=== PATIENT | male | born 1930 | race Asian ===

== ENCOUNTER 2018-03-22 21:43 | Inpatient (IN) | payer MEDICARE, OTHER ==
[~2018-03-22] VITALS: Ht 165.1 cm; Wt 68.0 kg
[2018-03-22 21:45] VITALS: BP 115/85
[2018-03-23] VITALS (8 sets, daily range): BP systolic 111–167; BP diastolic 61–100
[2018-03-23 00:02] LABS: HEMATOCRIT 45.1 % (42.0-52.0); HEMOGLOBIN 15.8 G/DL (14.2-18.0); MEAN CORPUSCULAR VOLUME 91 FL (80-99); PLATELET COUNT 181 K/UL (150-450); RED BLOOD COUNT 4.98 M/UL (4.70-6.10); RED CELL DISTRIBUTION WIDTH 12.3 % (11.6-14.8); WHITE BLOOD COUNT 10.6 K/UL (4.8-10.8)
[2018-03-23 00:13] LABS: APPEARANCE,URINE CLEAR; BILIRUBIN, URINE NEGATIVE (NEGATIVE); COLOR,URINE YELLOW; GLUCOSE, URINE (UA) NEGATIVE (NEGATIVE); KETONES,URINE 1+ (NEGATIVE); LEUKOCYTE ESTERASE ,URINE 1+ (NEGATIVE); NITRITE,URINE NEGATIVE (NEGATIVE); PH,URINE 6 (4.5-8.0); PROTEIN,URINE 2+ (NEGATIVE); UROBILINOGEN,URINE NORMAL MG/DL (0.0-1.0)
[2018-03-23 00:28] LABS: ALANINE AMINOTRANSFERASE 29 U/L (12-78); ALBUMIN 3.1 G/DL (3.4-5.0); ALBUMIN/GLOBULIN RATIO 0.8 (1.0-2.7); ALKALINE PHOSPHATASE 48 U/L (46-116); ANION GAP 6 mmol/L (5-15); ASPARTATE AMINO TRANSFERASE 71 U/L (15-37); BILIRUBIN,TOTAL 0.8 MG/DL (0.2-1.0); BLOOD UREA NITROGEN 23 mg/dL (7-18); CALCIUM 7.6 MG/DL (8.5-10.1); CARBON DIOXIDE 24 MMOL/L (21-32); CHLORIDE 106 MMOL/L (98-107); CKMB 1.6 NG/ML (0.0-3.6); CREATINE KINASE 284 U/L (26-308); CREATININE 1.1 MG/DL (0.55-1.30); SODIUM 136 MMOL/L (136-145)
[2018-03-23 00:33] LABS: POTASSIUM 6.6 MMOL/L (3.5-5.1)
[2018-03-23] MEDS ORDERED: Aspirin Baby 81mg ORAL ONE (00:45)
[2018-03-23] MEDS ORDERED: Enoxaparin 80mg Inj SUBQ ONE (00:45)
[2018-03-23] MEDS ORDERED: Enoxaparin 30mg Inj SUBQ ONE (01:41)
[2018-03-23] MEDS ORDERED: Enoxaparin 100mg Inj SUBQ ONE (01:42)
--- NOTE | 2018-03-23 01:57 | Emergency Room Report ---
History of Present Illness General Chief Complaint: Altered Level of Consciousness Source: Patient, Medical Record, EMS Present Illness HPI This is an 87-year-old Mohawk speaking male with a history of high blood pressure. He was brought in by EMS with chief complaint of dizziness. He was sitting on the sidewalk. He said he felt dizzy. Denies any chest pain. History is through her Mohawk speaking salt lifter. Patient is very poor historian. It appeared that he has dementia. He was well dressed. There was no evidence of any trauma. Patient said when he stood up he felt dizzy like his did not pass out. No other complaint. I was able to access his chart from [facility] online. He was there in 2014 for head injury. I called [facility] and able to get a Social Security number for him. From the Social Security number, registration was able to find an address for him. We called the police and that district and there was a missing person report. His son was contacted and is coming. Allergies: Coded Allergies: UNABLE TO ASSESS (Unverified , 03/22/18) Patient History Past Medical History: see triage record, old chart reviewed Past Surgical History: other Pertinent Family History: none Social History: Denies: smoking Immunizations: other Reviewed Nursing Documentation: PMH: Agreed; PSxH: Agreed Review of Systems Eye: Denies: eye pain, blurred vision ENT: Denies: ear pain, nose congestion, throat swelling Respiratory: Denies: cough, shortness of breath Cardiovascular: Denies: chest pain, palpitations Gastrointestinal: Denies: abdominal pain, diarrhea, nausea, vomiting Musculoskeletal: Denies: back pain, joint pain Skin: Denies: rash Neurological: Denies: headache, numbness Endocrine: Denies: increased thirst, increased urine Hematologic/Lymphatic: Denies: easy bruising All Other Systems: negative except mentioned in HPI Physical Exam Vital Signs Date Time Temp Pulse Resp B/P (MAP) Pulse Ox O2 Delivery O2 Flow Rate FiO2 03/22/18 21:37 98.3 104 18 115/85 98 Room Air 98.2 vitals normal Sp02 EP Interpretation: reviewed, normal General Appearance: well appearing, no apparent distress, alert Head: normocephalic, atraumatic Eyes: bilateral eye PERRL, bilateral eye EOMI ENT: hearing grossly normal, normal pharynx Neck: full range of motion, supple, no meningismus Respiratory: chest non-tender, lungs clear, normal breath sounds Cardiovascular #1: regular rate, rhythm, no murmur Gastrointestinal: normal bowel sounds, non tender, no mass, no organomegaly, no bruit, non-distended Musculoskeletal: back normal, gait/station normal, normal range of motion Psychiatric: mood/affect normal Skin: warm/dry Medical Decision Making Diagnostic Impression: Primary Impression: Dementia Qualified Codes: G30.1 - Alzheimer's disease with late onset; F02.80 - Dementia in other diseases classified elsewhere without behavioral disturbance Additional Impressions: Proteinuria Qualified Codes: R80.9 - Proteinuria, unspecified Dizziness of unknown cause ER Course Patient presents with altered mental status and dizziness. His troponin is intermediate here. He received aspirin and Lovenox here. He has no chest pain complaint. No evidence of ST elevation on his EKG. Will admit for further workup. I contacted Dr. Baires for admission. EKG Diagnostic Results Rate: normal Rhythm: NSR ST Segments: no acute changes ASA given to the pt in ED: Yes Rhythm Strip Diag. Results Rhythm Strip Time: 01:55 EP Interpretation: yes Rate: 80 Rhythm: NSR, no PVC's, no ectopy Chest X-Ray Diagnostic Results Chest X-Ray Diagnostic Results : Chest X-Ray Ordered: Yes # of Views/Limited/Complete: 1 View Indication: Shortness of Breath EP Interpretation: Yes Interpretation: no consolidation, no effusion, no pneumothorax, no acute cardiopulmonary disease Impression: No acute disease CT/MRI/US Diagnostic Results CT/MRI/US Diagnostic Results : Imaging Test Ordered: CT head Impression negative per radiologist Last Vital Signs Date Time Temp Pulse Resp B/P (MAP) Pulse Ox O2 Delivery O2 Flow Rate FiO2 03/22/18 21:45 98.2 18 115/85 98 Room Air 98.2 03/22/18 21:37 104 Status: improved Disposition: ADMITTED INPATIENT Condition: Serious Referrals: NOT CHOSEN BUSHRA/,REFERRING (PCP) CLAY ALMANZAR M.D. Mar 23, 2018 01:57
[2018-03-23] MEDS ORDERED: LORazepam Inj 2mg/ml 1ml IV ONE (02:15)
[2018-03-23] MEDS ORDERED: LORazepam 1mg tab ORAL PRN (04:15)
[2018-03-23] MEDS ORDERED: Milk of Magnesia 30ml Ud ORAL PRN (04:15)
[2018-03-23] MEDS ORDERED: Zolpidem 5mg tab ORAL PRN (04:15)
[2018-03-23] MEDS ORDERED: Aspirin Baby 81mg ORAL SCH (09:00)
--- NOTE | 2018-03-23 10:13 | Diagnostic Imaging Report ---
Indication: Altered mental status Technique: Contiguous 5 mm thick transaxial imaging of the head obtained in a Siemens Sensation [address] scanner. Soft tissue and bone windows generated. Automatic Exposure Control was utilized. Total Dose length Product (DLP): 1393.[address] Dose Index Volume (CTDIvol): 70.38 mGy Comparison: none Findings: There is moderate prominence of the ventricles, basal cisterns, and cerebral sulci consistent with atrophy. Moderate, nonspecific, white matter hypoattenuation is noted throughout the brain consistent with chronic small vessel disease. There is no midline shift, edema, acute hemorrhage, mass effect, or abnormal extra-axial fluid collections. Bones and extra osseous soft tissues are unremarkable. Impression: No acute intracranial bleed, mass effect or edema. Moderate atrophy of the brain. Evidence of chronic small vessel disease involving white matter tracts. [facility] has communicated the preliminary results to the Emergency Department. Their findings are largely concordant with this report. The CT scanner at [facility] is accredited by the [employer] and the scans are performed using dose optimization techniques as appropriate to a performed exam including Automatic Exposure control.
--- NOTE | 2018-03-23 10:56 | Diagnostic Imaging Report ---
Indication: Dyspnea Comparison: None A single view chest radiograph was obtained. Findings: Cardiomediastinal appearance is within normal limits for age. Pulmonary vascularity is appropriate. The diaphragmatic contour is smooth and costophrenic angles are sharp. No pleural effusions are identified. The bones are osteopenic. Impression: No acute findings
[2018-03-23] MEDS ORDERED: Memantine 5 MG TAB ORAL SCH (11:30)
[2018-03-23] MEDS: Aspirin Baby 81mg ORAL SCH (12:18)
--- NOTE | 2018-03-23 17:05 | Cardiology Report ---
APPROVED REPORT EKG Measurement Heart [id number] MS [id number] [id number] Normal sinus rhythm Cannot rule out Anterior infarct, age undetermined Abnormal ECG
[2018-03-23] MEDS: Donepezil 5mg Tab ORAL SCH ×2 (21:00→22:47)
--- NOTE | 2018-03-24 07:15 | History and Physical Report ---
DATE OF ADMISSION: 03/23/2018 NOTE: POOR AUDIO CHIEF COMPLAINT: The patient was found on the sidewalk complaining of dizziness. HISTORY OF PRESENT ILLNESS: This is an 87-year-old Kazakh male apparently with history of Alzheimer's dementia, just talked to the daughter. According to the daughter, the patient wandered out of the house yesterday and they could not find him. They made a police report. Meanwhile, the patient was found on the sidewalk sitting and complaining of dizziness and was brought in by paramedics. He had a slightly elevated troponin and was admitted to telemetry. There is no report of any syncope. PAST MEDICAL HISTORY: History of hypertension. Apparently, the patient has history of Alzheimer's and according to daughter, this is the fourth time he is wandering out of the house and not to be found. He had also, a few years ago, a head injury causing intracranial bleed needing evacuation. ALLERGIES: No known drug allergies. SOCIAL HISTORY: No history of smoking or alcohol abuse. The patient lives at home with . REVIEW OF SYSTEMS: Unobtainable. PHYSICAL EXAMINATION: GENERAL: The patient is lethargic at this point. The patient did get some Ativan in the emergency room. VITAL SIGNS: Blood pressure is 139/61 with pulse 67, temperature 97.5, and respiratory rate 18. HEENT: Minor conjunctivae. Anicteric sclerae. NECK: Supple. LUNGS: Clear to auscultation. HEART: S1 and S2 without murmurs or rubs. ABDOMEN: Soft and nontender. EXTREMITIES: No cyanosis or edema. LABORATORY FINDINGS: The CBC shows WBC of 10.6, hematocrit is 45.1, hemoglobin is 15.8, and platelets 181,000. Chemistry panel shows sodium 136, potassium was 6.6, however, repeat was 3.8, this was likely hemolyzed, chloride 106, CO2 of 24, BUN is 23, creatinine 1.1, glucose is 117, and calcium is 7.6. Troponin was 0.112. The UA shows 10 to 15 rbc's per high-power field and 2+ protein. ASSESSMENT: This is an 87-year-old Kazakh male with history of Alzheimer's dementia, who was found on the sidewalk complaining of dizziness. He was brought in to the emergency room. He has slightly elevated troponin possibly with acute coronary syndrome, however, likely that the patient does not have any acute myocardial infarction. He has history of hypertension, however, his blood pressure is controlled at this point. PLAN: The patient will be hydrated with intravenous fluids. Troponins will be repeated again. Echocardiogram will be done to assess LV function. Cardiology consultation will be obtained. Case was discussed with the daughter and the plan is a board and care facility after discharge since the patient is not safe to stay home. Jack Baires M.D. DR: BRENNAN JOB#: [id number] CC: CASSIA
[2018-03-24 08:00] VITALS: BP 142/80
[2018-03-24] MEDS: Aspirin Baby 81mg ORAL SCH (08:53)
[2018-03-24] MEDS ORDERED: Memantine 5 MG TAB ORAL SCH (09:00)
--- NOTE | 2018-03-24 09:28 | General Progress Note ---
Assessment/Plan Problem List: (1) Dizziness of unknown cause ICD Codes: R42 - Dizziness and giddiness SNOMED: 756598395 (2) Dementia ICD Codes: F03.90 - Unspecified dementia without behavioral disturbance SNOMED: 38678801, 45052132 Qualifiers: Qualified Codes: G30.1 - Alzheimer's disease with late onset; F02.80 - Dementia in other diseases classified elsewhere without behavioral disturbance (3) Elevated troponin ICD Codes: R74.8 - Abnormal levels of other serum enzymes SNOMED: 473808606, 132517969, 731366047 Assessment/Plan cardiology consult Tranfer to med surg Needs board and care Subjective Allergies: Coded Allergies: UNABLE TO ASSESS (Unverified , 03/22/18) Subjective confused Objective Last 24 Hour Vital Signs Date Time Temp Pulse Resp B/P (MAP) Pulse Ox O2 Delivery O2 Flow Rate FiO2 03/24/18 08:53 80 142/80 03/24/18 08:00 98.1 80 20 142/80 97 98.1 03/23/18 20:00 97.9 99 20 138/81 95 97.9 03/23/18 17:40 79 174/103 03/23/18 17:39 174/103 03/23/18 16:00 90 03/23/18 16:00 97.5 69 18 167/100 95 Room Air 97.5 83 03/23/18 12:00 69 03/23/18 12:00 97.5 69 18 153/91 95 Room Air 97.5 83 Intake and Output 03/23/18 03/24/18 19:00 07:00 Intake Total 1340 ml Balance 1340 ml Intake Oral 840 ml IV Total 500 ml # Voids 6 Laboratory Tests 03/23/18 11:10: Troponin I 0.154H 03/23/18 20:20: Troponin I 0.112H Height (Feet): 5 Height (Inches): 5.00 Weight (Pounds): 150 Cardiovascular: normal rate Respiratory/Chest: lungs clear Edema: no edema noted DARRIN Wyman Mar 24, 2018 09:28
[2018-03-24 12:00] VITALS: BP 163/81
--- NOTE | 2018-03-24 15:18 | General Progress Note ---
Assessment/Plan Status: stable Assessment/Plan seroquel standing and prn dc the sitter Subjective Date patient seen: Mar 24, 2018 Neurologic/Psychiatric: Reports: anxiety, depressed, emotional problems Allergies: Coded Allergies: UNABLE TO ASSESS (Unverified , 03/22/18) Objective Last 24 Hour Vital Signs Date Time Temp Pulse Resp B/P (MAP) Pulse Ox O2 Delivery O2 Flow Rate FiO2 03/24/18 12:00 97.0 91 20 163/81 98 97.0 03/24/18 08:53 80 142/80 03/24/18 08:00 98.1 80 20 142/80 97 98.1 03/23/18 20:00 97.9 99 20 138/81 95 97.9 03/23/18 17:40 79 174/103 03/23/18 17:39 174/103 03/23/18 16:00 90 03/23/18 16:00 97.5 69 18 167/100 95 Room Air 97.5 83 Intake and Output 03/23/18 03/24/18 19:00 07:00 Intake Total 1340 ml Balance 1340 ml Intake Oral 840 ml IV Total 500 ml # Voids 6 Laboratory Tests 03/23/18 20:20: Troponin I 0.112H Height (Feet): 5 Height (Inches): 5.00 Weight (Pounds): 150 General Appearance: no apparent distress, alert, confused, agitated Neurologic: alert, disoriented, depressed affect Harvey Germain M.D. Mar 24, 2018 15:18
[2018-03-24 16:00] VITALS: BP 148/86
[2018-03-24 17:05] LABS: CHOLESTEROL 176 MG/DL (< 200); HDL CHOLESTEROL 53 MG/DL (40-60); TRIGLYCERIDES 70 MG/DL (30-150)
--- NOTE | 2018-03-24 17:15 | Consultation ---
DATE OF CONSULTATION: 03/23/2018 This is a late entry. HISTORY OF PRESENT ILLNESS: The patient is an 87-year-old Kiswahili male with a history of Alzheimer dementia, who has been admitted to the hospital for dizziness. The patient has been agitated and attempting to come out of bed. During observation, he was very agitated. He had a sitter and not redirectable. During the evaluation, he is unable to provide any meaningful history and is easily agitated. PAST PSYCHIATRIC HISTORY: He has a history of Alzheimer dementia. He has a history of dementia and agitation. ALLERGIES: No known drug allergies. PAST MEDICAL HISTORY: Significant for hypertension and cognitive impairment. MENTAL STATUS EXAMINATION: The patient is alert and oriented times self, confused, and disoriented. Mood is agitated. Affect is constricted. Congruent with mood. Thought process is concrete. Thought content, no suicidal or homicidal ideations. ASSESSMENT: [place] I Encephalopathy. Dementia with behavioral disturbance. [place] II Deferred. [place] III As above. [place] IV Low. [place] V Global assessment of functioning is 20. PLAN: 1. The patient will be started on Seroquel 25 mg every 6 hours p.r.n. 2. Seroquel at 25 mg at bedtime with the head 30-degree. Continue the sitter. Harvey Germain M.D. DR: RAKESH JOB#: [id number] CC:
[2018-03-24] MEDS: LORazepam Inj 2mg/ml 1ml IM PRN (17:55)
--- NOTE | 2018-03-24 19:00 | Cardiology Progress Note ---
Assessment/Plan Assessment/Plan pt poor candidate for anything other than conservative therpay with asa bb statin not been able to contact family alexander have echo repat ekg and trop in am [id number] Objective Last 24 Hour Vital Signs Date Time Temp Pulse Resp B/P (MAP) Pulse Ox O2 Delivery O2 Flow Rate FiO2 03/24/18 16:00 97.3 98 20 148/86 95 Room Air 97.3 03/24/18 12:00 97.0 91 20 163/81 98 97.0 03/24/18 08:53 80 142/80 03/24/18 08:00 98.1 80 20 142/80 97 98.1 03/23/18 20:00 97.9 99 20 138/81 95 97.9 Intake and Output 03/23/18 03/24/18 19:00 07:00 Intake Total 1340 ml Balance 1340 ml Intake Oral 840 ml IV Total 500 ml # Voids 6 Laboratory Tests Test 03/23/18 20:20 03/24/18 16:05 Troponin I 0.112 ng/mL (0.000-0.056) 0.060 ng/mL (0.000-0.056) Hemoglobin A1c 5.9 % (4.3-6.0) Triglycerides Level 70 MG/DL (30-150) Cholesterol Level 176 MG/DL (< 200) LDL Cholesterol 117 mg/dL (<100) H HDL Cholesterol 53 MG/DL (40-60) Cholesterol/HDL Ratio 3.3 (3.3-4.4) Thyroid Stimulating Hormone (TSH) 2.812 uiU/mL (0.358-3.740) ESTER TODD Mar 24, 2018 19:00
[2018-03-24 20:00] VITALS: BP 141/82
[2018-03-24] MEDS: Metoprolol Tartrate 12.5mg TAB ORAL SCH ×2 (20:56→21:00)
--- NOTE | 2018-03-24 23:00 | Consultation ---
DATE OF CONSULTATION: 03/24/2018 CARDIOLOGY CONSULTATION CONSULTING PHYSICIAN: Kraig Sanchez M.D. REFERRING PHYSICIAN: Jack Baires M.D. REASON FOR REFERRAL: Abnormal cardiac enzymes. HISTORY OF PRESENT ILLNESS: This is an 87-year-old Green[place]ic gentleman with apparently advanced dementia. The patient is being seen because of abnormal cardiac enzymes. I tried to contact the patient's daughter for more information. Unfortunately I have not been able to get in touch with her; therefore, information was obtained from the review of the chart. It appears the patient was found sitting on the sidewalk by bystander and when approached he said he felt dizzy and bystanders then called 911. The patient was able to state his name, but communication was very limited, Green[place]ic speaking, very little [place]. Eventually the patient was brought to the emergency room and was admitted to the hospital and was noted to have some abnormal cardiac enzymes. This consultation requested by Dr. Baires. It appears that the patient has a family history of Alzheimer's dementia. He wandered out of the house yesterday and they could not find him. They made a police report and obviously the rest is as mentioned above. The patient has slightly elevated troponin at the time of his admission and he was admitted to the hospital. PAST MEDICAL HISTORY: According to the chart positive for high blood pressure, Alzheimer's dementia, and he has had wandering episodes previously, and he also had a few years ago head injury causing intracranial bleeding needing evacuation apparently. ALLERGIES: Not allergic to any medications. SOCIAL HISTORY: He does not smoke or drink alcoholic beverages. He lives at home with his . REVIEW OF SYSTEMS: Unable to obtain. PHYSICAL EXAMINATION: GENERAL: Shows to be elderly gentleman, in no respiratory distress, quite confused and gibberish talking and otherwise not able to provide any meaningful. LUNGS: Appear to be clear to auscultation and percussion. CARDIAC: Regular rate and rhythm. No heaves or thrills noted. ABDOMEN: Soft and nontender. Positive bowel sounds. EXTREMITIES: There is no edema. No clubbing or cyanosis. LABORATORY AND DIAGNOSTIC DATA: A chest x-ray that showed no acute findings. A CT scan of the head was performed that showed no evidence of acute intracranial bleed, mass effect, or edema, moderate atrophy of the brain and evidence of chronic small vessel disease involving the white matter tracts apparently. Blood tests, white count 10.6, hemoglobin 15.8, and platelet count 181. His sodium is 136, potassium 6.6, chloride 106, bicarbonate 24, BUN of 22, creatinine 1.1 and glucose of 117. His first set of cardiac enzymes 0.112 and CK of 284. Subsequent troponin 0.154, 0.112, and 0.060. Total cholesterol 172, LDL of 117 and HDL of 53. TSH of 2.812. His potassium was repeated at 3.8. His urinalysis shows 10 to 15 rbc's and 2 to 4 wbc's. He has had an electrocardiogram that was performed, which showed normal QRS axis, some nonspecific T-wave changes, otherwise, no other significant abnormalities. There is poor R-wave progression, which may be others. The telemetry appears to show sinus when he arouse but he has been refusing to allow telemetry according the nursing staff. He has had a sitter at his bedside. ASSESSMENT AND PLAN: 1. Abnormal cardiac enzymes. 2. Advanced dementia. 3. Wandering. 4. History of intracranial bleed. Dr. Baires, this patient was seen in cardiac consultation. The patient has no capacity to communicate. I have not been able to get a hold of the patient's family members. The etiology of the cardiac enzymes not completely understood as of yet, however, the patient is a very poor candidate for any further workup. An echocardiogram will be ordered and repeat EKG and cardiac enzymes will be ordered for tomorrow morning and my hope is to be able to get some more information from the patient's family members and do notify them that he is not a candidate for any further therapy and to treat conservatively, may add some beta-blockers to the patient's regimen as well as some aspirin and some statins for conservative treatment of possible underlying coronary disease. I will provide more information once I am able to communicate with the patient's family members and/or if the results of the above tests are available. Kraig Snachez M.D. DR: JACQUES JOB#: [id number] CC:
[2018-03-25] VITALS (8 sets, daily range): BP systolic 119–172; BP diastolic 68–109
[2018-03-25] MEDS: Metoprolol Tartrate 12.5mg TAB ORAL SCH ×2 (09:00→21:00)
[2018-03-25] MEDS: Aspirin Baby 81mg ORAL SCH (09:00)
[2018-03-25] MEDS: LORazepam Inj 2mg/ml 1ml IM PRN ×2 (09:34→16:27)
--- NOTE | 2018-03-25 13:21 | Cardiology Progress Note ---
Assessment/Plan Assessment/Plan 1. Abnormal cardiac enzymes. 2. Advanced dementia. 3. Wandering. 4. History of intracranial bleed. trop level do not reach WHO. criterea for ami per manufact recommendation pt poor candidate for anything other than conservative therapy on asa bb statin trop improved ekg nto doen pt did not allow had echo i reviwewecd overall function seems fine d/w pt dtr my recommnedation for meds as noted above she indicated understanding and agree with conservative treatment d/c tele dc plan per dr izquierdo d/w rn Subjective ROS Limited/Unobtainable: Yes Objective Last 24 Hour Vital Signs Date Time Temp Pulse Resp B/P (MAP) Pulse Ox O2 Delivery O2 Flow Rate FiO2 03/25/18 09:00 81 157/89 03/25/18 09:00 81 157/89 03/25/18 08:00 97.9 81 18 157/89 95 Room Air 97.9 03/25/18 04:00 97.9 81 20 133/68 97 Room Air 97.9 03/25/18 04:00 81 03/25/18 00:00 80 03/25/18 00:00 97.3 80 18 130/74 96 Room Air 97.3 03/24/18 21:00 81 141/82 03/24/18 20:00 98.0 89 20 141/82 97 Room Air 98.0 03/24/18 16:00 97.3 98 20 148/86 95 Room Air 97.3 General Appearance: other - comfused some , at time agitated Neck: supple Cardiovascular: normal rate Respiratory/Chest: lungs clear Abdomen: normal bowel sounds, non tender, soft Extremities: no swelling Intake and Output 03/24/18 03/25/18 19:00 07:00 Intake Total 640 ml 452 ml Balance 640 ml 452 ml Intake Oral 640 ml IV Total 452 ml # Voids 13 2 Laboratory Tests Test 03/24/18 16:05 03/25/18 07:45 Hemoglobin A1c 5.9 % (4.3-6.0) Troponin I 0.060 ng/mL (0.000-0.056) 0.039 ng/mL (0.000-0.056) Triglycerides Level 70 MG/DL (30-150) Cholesterol Level 176 MG/DL (< 200) LDL Cholesterol 117 mg/dL (<100) H HDL Cholesterol 53 MG/DL (40-60) Cholesterol/HDL Ratio 3.3 (3.3-4.4) Thyroid Stimulating Hormone (TSH) 2.812 uiU/mL (0.358-3.740) ESTER TODD March 25, 2018 13:21
--- NOTE | 2018-03-25 16:38 | Cardiology Report ---
APPROVED REPORT EXAM: Two-dimensional and M-mode echocardiogram with Doppler and color Doppler. INDICATION CAD M-Mode DIMENSIONS IVSd1.3 (0.7-1.1cm)Left Atrium (MM)3.2 (1.6-4.0cm) LVDd3.9 (3.5-5.6cm)Aortic Root3.3 (2.0-3.7cm) PWd1.3 (0.7-1.1cm)Aortic Cusp Exc.2.0 (1.5-2.0cm) IVSs1.7 cm LVDs2.7 (2.5-4.0cm) PWs1.6 cm Technically difficult study due to pts resistance . Normal left ventricular chamber size, systolic function and wall motion to extent visualized Left ventricular ejection fraction estimated to be 60-65%. No evidence of left ventricular hypertrophy . No evidence of pericardial effusion. All other cardiac chamber sizes are within normal limits. Focal aortic valve sclerosis with adequate cusp excursion. Mildly Thickened mitral valve leaflets with normal excursion. Mildly Mitral annulus and aortic root calcification. Normal pulmonic valve structure. Normal tricuspid valve structure. IVC dilated at 2.2cm without physiologic collapse suggestive of increased RA pressure. A color flow and spectral Doppler study was performed and revealed: Mild aortic regurgitation. Trace mitral regurgitation. Normal left ventricular diastolic function . Trace tricuspid regurgitation. Tricuspid systolic velocities suggests peak right ventricular systolic pressure of 19mmHg.
--- NOTE | 2018-03-25 16:55 | General Progress Note ---
Assessment/Plan Problem List: (1) Dizziness of unknown cause ICD Codes: R42 - Dizziness and giddiness SNOMED: 520831416 (2) Dementia ICD Codes: F03.90 - Unspecified dementia without behavioral disturbance SNOMED: 21081429, 93870317 Qualifiers: Qualified Codes: G30.1 - Alzheimer's disease with late onset; F02.80 - Dementia in other diseases classified elsewhere without behavioral disturbance (3) Elevated troponin ICD Codes: R74.8 - Abnormal levels of other serum enzymes SNOMED: 850710983, 584661100, 067444789 Assessment/Plan psych F/U PRN sedation Discussed with RN and case management social worker Needs placement Subjective Allergies: Coded Allergies: UNABLE TO ASSESS (Unverified , 03/22/18) Subjective pt was agitated today sedated now Objective Last 24 Hour Vital Signs Date Time Temp Pulse Resp B/P (MAP) Pulse Ox O2 Delivery O2 Flow Rate FiO2 03/25/18 15:52 172/109 03/25/18 15:51 98.4 86 20 172/109 95 98.4 03/25/18 13:22 150/92 03/25/18 12:00 97.1 81 18 168/100 95 Room Air 97.1 03/25/18 09:00 81 157/89 03/25/18 09:00 81 157/89 03/25/18 08:00 97.9 81 18 157/89 95 Room Air 97.9 03/25/18 04:00 97.9 81 20 133/68 97 Room Air 97.9 03/25/18 04:00 81 03/25/18 00:00 80 03/25/18 00:00 97.3 80 18 130/74 96 Room Air 97.3 03/24/18 21:00 81 141/82 03/24/18 20:00 98.0 89 20 141/82 97 Room Air 98.0 Intake and Output 03/24/18 03/25/18 19:00 07:00 Intake Total 640 ml 452 ml Balance 640 ml 452 ml Intake Oral 640 ml IV Total 452 ml # Voids 13 2 Laboratory Tests 03/25/18 07:45: Troponin I 0.039 Height (Feet): 5 Height (Inches): 5.00 Weight (Pounds): 150 Cardiovascular: normal rate Respiratory/Chest: lungs clear Edema: no edema noted Generalized RAHBAN,DARRIN March 25, 2018 16:55
[2018-03-25 19:10] LABS: BASOPHILS % (AUTO) 0.9 % (0.0-2.0); EOSINOPHILS % (AUTO) 2.5 % (0.0-3.0); HEMATOCRIT 48.9 % (42.0-52.0); HEMOGLOBIN 16.2 G/DL (14.2-18.0); LYMPHOCYTES % (AUTO) 10.9 % (20.0-45.0); MEAN CORPUSCULAR VOLUME 91 FL (80-99); MONOCYTES % (AUTO) 10.1 % (1.0-10.0); NEUTROPHILS % (AUTO) 75.7 % (45.0-75.0); PLATELET COUNT 186 K/UL (150-450); RED BLOOD COUNT 5.38 M/UL (4.70-6.10); RED CELL DISTRIBUTION WIDTH 12.3 % (11.6-14.8); WHITE BLOOD COUNT 8.1 K/UL (4.8-10.8)
[2018-03-25 19:23] LABS: ANION GAP 12 mmol/L (5-15); BLOOD UREA NITROGEN 19 mg/dL (7-18); CALCIUM 8.8 MG/DL (8.5-10.1); CARBON DIOXIDE 24 MMOL/L (21-32); CHLORIDE 104 MMOL/L (98-107); CREATININE 0.9 MG/DL (0.55-1.30); SODIUM 140 MMOL/L (136-145)
--- NOTE | 2018-03-25 22:41 | General Progress Note ---
Assessment/Plan Status: stable, progressing Assessment/Plan seroquel standing and prn dc the sitter Subjective Date patient seen: March 25, 2018 Neurologic/Psychiatric: Reports: anxiety, depressed, emotional problems Allergies: Coded Allergies: UNABLE TO ASSESS (Unverified , 03/22/18) Objective Last 24 Hour Vital Signs Date Time Temp Pulse Resp B/P (MAP) Pulse Ox O2 Delivery O2 Flow Rate FiO2 03/25/18 20:00 97.9 87 16 119/79 96 97.9 03/25/18 18:50 89 20 141/94 03/25/18 15:52 172/109 03/25/18 15:51 98.4 86 20 172/109 95 98.4 03/25/18 13:22 150/92 03/25/18 12:00 97.1 81 18 168/100 95 Room Air 97.1 03/25/18 09:00 81 157/89 03/25/18 09:00 81 157/89 03/25/18 08:00 97.9 81 18 157/89 95 Room Air 97.9 03/25/18 04:00 97.9 81 20 133/68 97 Room Air 97.9 03/25/18 04:00 81 03/25/18 00:00 80 03/25/18 00:00 97.3 80 18 130/74 96 Room Air 97.3 Intake and Output 03/24/18 03/25/18 19:00 07:00 Intake Total 640 ml 452 ml Balance 640 ml 452 ml Intake Oral 640 ml IV Total 452 ml # Voids 13 2 Laboratory Tests 03/25/18 07:45: Troponin I 0.039 03/25/18 18:30: White Blood Count 8.1, Red Blood Count 5.38, Hemoglobin 16.2, Hematocrit 48.9, Mean Corpuscular Volume 91, Mean Corpuscular Hemoglobin 30.1, Mean Corpuscular Hemoglobin Concent 33.1, Red Cell Distribution Width 12.3, Platelet Count 186, Mean Platelet Volume 7.3, Neutrophils (%) (Auto) 75.7H, Lymphocytes (%) (Auto) 10.9L, Monocytes (%) (Auto) 10.1H, Eosinophils (%) (Auto) 2.5, Basophils (%) ( Auto) 0.9, Sodium Level 140, Potassium Level 4.0, Chloride Level 104, Carbon Dioxide Level 24, Anion Gap 12, Blood Urea Nitrogen 19H, Creatinine 0.9, Estimat Glomerular Filtration Rate , Glucose Level 104, Calcium Level 8.8 Height (Feet): 5 Height (Inches): 5.00 Weight (Pounds): 150 General Appearance: WD/WN, no apparent distress, alert, confused Harvey Germain M.D. March 25, 2018 22:41
[2018-03-26 00:21] VITALS: BP 115/74
[2018-03-26 04:00] VITALS: BP 145/90
[2018-03-26] MEDS ORDERED: Milk of Magnesia 30ml Ud ORAL PRN (04:15)
[2018-03-26 08:00] VITALS: BP 150/97
[2018-03-26] MEDS: Metoprolol Tartrate 12.5mg TAB ORAL SCH ×2 (09:52→21:00)
[2018-03-26] MEDS: Aspirin Baby 81mg ORAL SCH (09:54)
[2018-03-26] MEDS ORDERED: Sodium Chloride 500ML 550 ML IV SCH (10:45)
--- NOTE | 2018-03-26 11:46 | General Progress Note ---
Assessment/Plan Problem List: (1) Dizziness of unknown cause ICD Codes: R42 - Dizziness and giddiness SNOMED: 956317418 (2) Dementia ICD Codes: F03.90 - Unspecified dementia without behavioral disturbance SNOMED: 78951494, 85194324 Qualifiers: Qualified Codes: G30.1 - Alzheimer's disease with late onset; F02.80 - Dementia in other diseases classified elsewhere without behavioral disturbance (3) Elevated troponin ICD Codes: R74.8 - Abnormal levels of other serum enzymes SNOMED: 561993557, 965862228, [id number] Assessment/Plan psych F/U PRN sedation Dc IV Needs placement Subjective Allergies: Coded Allergies: UNABLE TO ASSESS (Unverified , 03/22/18) Subjective calm today Objective Last 24 Hour Vital Signs Date Time Temp Pulse Resp B/P (MAP) Pulse Ox O2 Delivery O2 Flow Rate FiO2 03/26/18 09:53 96 154/94 03/26/18 09:52 96 154/94 03/26/18 08:00 97.0 82 18 150/97 97.0 03/26/18 04:00 98.3 90 17 145/90 95 98.3 03/26/18 00:21 98.0 81 16 115/74 96 98.0 03/25/18 20:00 97.9 87 16 119/79 96 97.9 03/25/18 20:00 Room Air 03/25/18 18:50 89 20 141/94 03/25/18 15:52 172/109 03/25/18 15:51 98.4 86 20 172/109 95 98.4 03/25/18 13:22 150/92 03/25/18 12:00 97.1 81 18 168/100 95 Room Air 97.1 Intake and Output 03/25/18 03/26/18 19:00 07:00 Intake Total 480 ml Balance 480 ml Intake Oral 480 ml # Voids 8 4 Laboratory Tests 03/25/18 18:30: White Blood Count 8.1, Red Blood Count 5.38, Hemoglobin 16.2, Hematocrit 48.9, Mean Corpuscular Volume 91, Mean Corpuscular Hemoglobin 30.1, Mean Corpuscular Hemoglobin Concent 33.1, Red Cell Distribution Width 12.3, Platelet Count 186, Mean Platelet Volume 7.3, Neutrophils (%) (Auto) 75.7H, Lymphocytes (%) (Auto) 10.9L, Monocytes (%) (Auto) 10.1H, Eosinophils (%) (Auto) 2.5, Basophils (%) ( Auto) 0.9, Sodium Level 140, Potassium Level 4.0, Chloride Level 104, Carbon Dioxide Level 24, Anion Gap 12, Blood Urea Nitrogen 19H, Creatinine 0.9, Estimat Glomerular Filtration Rate , Glucose Level 104, Calcium Level 8.8 Height (Feet): 5 Height (Inches): 5.00 Weight (Pounds): 150 Cardiovascular: normal rate Respiratory/Chest: lungs clear Edema: no edema noted Generalized DARRIN NOEL March 26, 2018 11:46
[2018-03-26 12:08] VITALS: BP 155/97
--- NOTE | 2018-03-26 12:13 | General Progress Note ---
Assessment/Plan Status: stable Assessment/Plan seroquel standing and prn dc the sitter Subjective Date patient seen: March 26, 2018 Neurologic/Psychiatric: Reports: anxiety, depressed, emotional problems Allergies: Coded Allergies: UNABLE TO ASSESS (Unverified , 03/22/18) Subjective the pt is agitated and confused Objective Last 24 Hour Vital Signs Date Time Temp Pulse Resp B/P (MAP) Pulse Ox O2 Delivery O2 Flow Rate FiO2 03/26/18 12:08 96.3 88 16 155/97 96.3 03/26/18 09:53 96 154/94 03/26/18 09:52 96 154/94 03/26/18 08:00 97.0 82 18 150/97 97.0 03/26/18 04:00 98.3 90 17 145/90 95 98.3 03/26/18 00:21 98.0 81 16 115/74 96 98.0 03/25/18 20:00 97.9 87 16 119/79 96 97.9 03/25/18 20:00 Room Air 03/25/18 18:50 89 20 141/94 03/25/18 15:52 172/109 03/25/18 15:51 98.4 86 20 172/109 95 98.4 03/25/18 13:22 150/92 Intake and Output 03/25/18 03/26/18 19:00 07:00 Intake Total 480 ml Balance 480 ml Intake Oral 480 ml # Voids 8 4 Laboratory Tests 03/25/18 18:30: White Blood Count 8.1, Red Blood Count 5.38, Hemoglobin 16.2, Hematocrit 48.9, Mean Corpuscular Volume 91, Mean Corpuscular Hemoglobin 30.1, Mean Corpuscular Hemoglobin Concent 33.1, Red Cell Distribution Width 12.3, Platelet Count 186, Mean Platelet Volume 7.3, Neutrophils (%) (Auto) 75.7H, Lymphocytes (%) (Auto) 10.9L, Monocytes (%) (Auto) 10.1H, Eosinophils (%) (Auto) 2.5, Basophils (%) ( Auto) 0.9, Sodium Level 140, Potassium Level 4.0, Chloride Level 104, Carbon Dioxide Level 24, Anion Gap 12, Blood Urea Nitrogen 19H, Creatinine 0.9, Estimat Glomerular Filtration Rate , Glucose Level 104, Calcium Level 8.8 Height (Feet): 5 Height (Inches): 5.00 Weight (Pounds): 150 General Appearance: WD/WN, no apparent distress, alert, confused Harvey Germain M.D. March 26, 2018 12:13
[2018-03-26] MEDS: LORazepam Inj 2mg/ml 1ml IM PRN ×2 (14:32→20:48)
[2018-03-26 15:38] VITALS: BP 126/78
--- NOTE | 2018-03-26 19:41 | Cardiology Progress Note ---
Assessment/Plan Assessment/Plan 1. Abnormal cardiac enzymes. 2. Advanced dementia. 3. Wandering. 4. History of intracranial bleed. trop level do not reach WHO. criterea for ami per manufact recommendation pt poor candidate for anything other than conservative therapy on asa bb statin had echo i reviwewecd overall function seems fine dc plan per dr timbo wilson stagabe at the moment Subjective ROS Limited/Unobtainable: Yes Objective Last 24 Hour Vital Signs Date Time Temp Pulse Resp B/P (MAP) Pulse Ox O2 Delivery O2 Flow Rate FiO2 03/26/18 15:53 100 Room Air 03/26/18 15:38 96.9 97 18 126/78 96.9 03/26/18 12:10 96 Room Air 03/26/18 12:08 96.3 88 16 155/97 96.3 03/26/18 12:00 96 Room Air 03/26/18 09:53 96 154/94 03/26/18 09:52 96 154/94 03/26/18 08:00 97.0 82 18 150/97 97.0 03/26/18 04:00 98.3 90 17 145/90 95 98.3 03/26/18 00:21 98.0 81 16 115/74 96 98.0 03/25/18 20:00 97.9 87 16 119/79 96 97.9 03/25/18 20:00 Room Air General Appearance: no apparent distress Intake and Output 03/25/18 03/26/18 19:00 07:00 Intake Total 480 ml Balance 480 ml Intake Oral 480 ml # Voids 8 4 ESTER TODD March 26, 2018 19:41
[2018-03-26 20:00] VITALS: BP 157/63
[2018-03-26] MEDS: Haloperidol 5mg/ml Inj IM PRN (20:49)
[2018-03-27 08:42] VITALS: BP 156/98
[2018-03-27] MEDS: Aspirin Baby 81mg ORAL SCH (10:12)
[2018-03-27] MEDS: Metoprolol Tartrate 12.5mg TAB ORAL SCH ×2 (10:12→20:08)
[2018-03-27] MEDS: Haloperidol 5mg/ml Inj IM PRN ×2 (10:32→20:55)
[2018-03-27 12:00] VITALS: BP 149/86
--- NOTE | 2018-03-27 12:01 | General Progress Note ---
Assessment/Plan Status: stable Assessment/Plan seroquel standing and prn dc the sitter Subjective Date patient seen: March 27, 2018 Neurologic/Psychiatric: Reports: anxiety, depressed, emotional problems Allergies: Coded Allergies: No Known Allergies (Unverified , 03/26/18) Subjective the pt is less agitated and confused. Objective Last 24 Hour Vital Signs Date Time Temp Pulse Resp B/P (MAP) Pulse Ox O2 Delivery O2 Flow Rate FiO2 03/27/18 10:12 82 156/98 03/27/18 10:12 82 156/98 03/27/18 08:42 96.6 82 18 156/98 98 96.6 03/26/18 20:00 96.1 84 18 157/63 97 Room Air 96.1 03/26/18 15:53 100 Room Air 03/26/18 15:38 96.9 97 18 126/78 96.9 03/26/18 12:10 96 Room Air 03/26/18 12:08 96.3 88 16 155/97 96.3 03/26/18 12:00 96 Room Air Intake and Output 03/26/18 03/27/18 19:00 07:00 Intake Total 730 ml Balance 730 ml Intake Oral 730 ml # Voids 6 1 Height (Feet): 5 Height (Inches): 5.00 Weight (Pounds): 150 General Appearance: WD/WN, no apparent distress, alert Neurologic: depressed affect Harvey Germain M.D. March 27, 2018 12:01
--- NOTE | 2018-03-27 14:14 | General Progress Note ---
Assessment/Plan Problem List: (1) Dizziness of unknown cause ICD Codes: R42 - Dizziness and giddiness SNOMED: 006085424 (2) Dementia ICD Codes: F03.90 - Unspecified dementia without behavioral disturbance SNOMED: 54740785, 27166679 Qualifiers: Qualified Codes: G30.1 - Alzheimer's disease with late onset; F02.80 - Dementia in other diseases classified elsewhere without behavioral disturbance (3) Elevated troponin ICD Codes: R74.8 - Abnormal levels of other serum enzymes SNOMED: 068796197, 173483080, 196166452 Assessment/Plan psych F/U PRN sedation Discussed with telephonic nurse case manager Needs placement Subjective Allergies: Coded Allergies: No Known Allergies (Unverified , 03/26/18) Subjective calm today Objective Last 24 Hour Vital Signs Date Time Temp Pulse Resp B/P (MAP) Pulse Ox O2 Delivery O2 Flow Rate FiO2 03/27/18 12:00 97.0 75 18 149/86 98 97.0 03/27/18 10:12 82 156/98 03/27/18 10:12 82 156/98 03/27/18 08:42 96.6 82 18 156/98 98 96.6 03/26/18 20:00 96.1 84 18 157/63 97 Room Air 96.1 03/26/18 15:53 100 Room Air 03/26/18 15:38 96.9 97 18 126/78 96.9 Intake and Output 03/26/18 03/27/18 19:00 07:00 Intake Total 730 ml Balance 730 ml Intake Oral 730 ml # Voids 6 1 Height (Feet): 5 Height (Inches): 5.00 Weight (Pounds): 150 Cardiovascular: normal rate Respiratory/Chest: lungs clear Edema: no edema noted DARRIN Wyman March 27, 2018 14:14
[2018-03-27 16:00] VITALS: BP 149/92
[2018-03-27 20:00] VITALS: BP 153/107
[2018-03-27] MEDS: LORazepam Inj 2mg/ml 1ml IM PRN (20:52)
[2018-03-28] MEDS: Metoprolol Tartrate 12.5mg TAB ORAL SCH (08:33)
[2018-03-28] MEDS: Aspirin Baby 81mg ORAL SCH (08:35)
[2018-03-28 08:58] VITALS: BP 110/80
[2018-03-28] MEDS: Haloperidol 5mg/ml Inj IM PRN (10:50)
--- NOTE | 2018-03-28 11:26 | General Progress Note ---
Assessment/Plan Status: stable, progressing Assessment/Plan seroquel standing and prn haldol prn dc the sitter Subjective Date patient seen: March 28, 2018 Neurologic/Psychiatric: Reports: anxiety, depressed, emotional problems Allergies: Coded Allergies: No Known Allergies (Unverified , 03/26/18) Subjective the pt is less agitated and confused. Objective Last 24 Hour Vital Signs Date Time Temp Pulse Resp B/P (MAP) Pulse Ox O2 Delivery O2 Flow Rate FiO2 03/28/18 08:58 98.4 86 20 110/80 95 98.4 03/28/18 08:35 90 03/28/18 08:33 82 149/92 03/27/18 20:08 82 149/92 03/27/18 20:00 97.0 108 18 153/107 93 97.0 03/27/18 16:00 98.2 82 18 149/92 96 98.2 03/27/18 12:00 97.0 75 18 149/86 98 97.0 Intake and Output 03/27/18 03/28/18 19:00 07:00 Intake Total 480 ml Balance 480 ml Intake Oral 480 ml # Voids 3 5 Height (Feet): 5 Height (Inches): 5.00 Weight (Pounds): 150 General Appearance: WD/WN, no apparent distress, alert Neurologic: alert, oriented x 3, responsive Harvey Germain M.D. March 28, 2018 11:26
[2018-03-28 11:51] VITALS: BP 112/65
[2018-03-28] MEDS ORDERED: ACETAMINOPHEN325 M1 ORAL (12:20)
[2018-03-28] MEDS ORDERED: AMLODIPINE BESYL5 MG ORAL (12:21)
[2018-03-28] MEDS ORDERED: ASPIRIN81 MG ORAL (12:21)
[2018-03-28] MEDS ORDERED: ATORVASTATIN CA10 MG ORAL (12:22)
[2018-03-28] MEDS ORDERED: CATAPRES0.1 MG ORAL (12:24)
[2018-03-28] MEDS ORDERED: HALDOL INJECT5 MG/ML IM (12:25)
[2018-03-28] MEDS ORDERED: METOPROLOL TART25 MG ORAL (12:27)
[2018-03-28] MEDS ORDERED: LORAZEPAM2 MG/1 M1 IV (12:27)
[2018-03-28] MEDS ORDERED: QUETIAPINE FUMA25 MG ORAL (12:30)
--- NOTE | 2018-03-28 13:25 | General Progress Note ---
Assessment/Plan Problem List: (1) Dizziness of unknown cause ICD Codes: R42 - Dizziness and giddiness SNOMED: 432260415 (2) Dementia ICD Codes: F03.90 - Unspecified dementia without behavioral disturbance SNOMED: 79237674, 51078680 Qualifiers: Qualified Codes: G30.1 - Alzheimer's disease with late onset; F02.80 - Dementia in other diseases classified elsewhere without behavioral disturbance (3) Elevated troponin ICD Codes: R74.8 - Abnormal levels of other serum enzymes SNOMED: 670224462, 842350001, 949824153 Assessment/Plan cont as is DC today Subjective Allergies: Coded Allergies: No Known Allergies (Unverified , 03/26/18) Subjective calm today Objective Last 24 Hour Vital Signs Date Time Temp Pulse Resp B/P (MAP) Pulse Ox O2 Delivery O2 Flow Rate FiO2 03/28/18 11:51 98.0 69 20 112/65 96 98.0 03/28/18 08:58 98.4 86 20 110/80 95 98.4 03/28/18 08:35 90 03/28/18 08:33 82 149/92 03/27/18 20:08 82 149/92 03/27/18 20:00 97.0 108 18 153/107 93 97.0 03/27/18 16:00 98.2 82 18 149/92 96 98.2 Intake and Output 03/27/18 03/28/18 19:00 07:00 Intake Total 480 ml Balance 480 ml Intake Oral 480 ml # Voids 3 5 Height (Feet): 5 Height (Inches): 5.00 Weight (Pounds): 150 Cardiovascular: normal rate Respiratory/Chest: lungs clear DARRIN NOEL March 28, 2018 13:25
--- NOTE | 2018-03-31 10:54 | Discharge Summary ---
Discharge Summary Discharge Summary Discharge Summary DATE OF ADMISSION: 03/23/2018 DATE OF DISCHARGE: For 2018 REASON FOR ADMISSION: 87 years old male with past medical history significant for Alzheimer dementia hypertension on was brought to emergency department by paramedics complaining of severe dizziness. He denied chest pain or shortness of breath. Patient was confused and on obtaining of information was difficult until emergency room doctor was able to contact [facility] obtained he is on number phone number and contact facility. On workup in emergency room revealed stable vital sinus stable laboratory values no leukocytosis stable hemoglobin and hematocrit electrolytes are stable chest x-ray revealed no acute cardiopulmonary pathology CT of the head revealed no acute intracranial pathology but shows chronic small vessel disease. Troponin was slightly elevated 0.112. EKG revealed normal sinus regional acute ischemic changes. Patient was admitted with diagnosis of dizziness, elevated troponin, on dementia history of hypertension CONSULTANTS: alcoholic counselor Dr. Sanchez psychiatrist [facility]: Patient admitted to telemetry floor. Cardiology consult was requested. Sitter was assigned for safety. According to alcoholic counselor, troponin levels did not reach criteria by WHO for acute HI per manufacture recommendation. Patient was a poor candidate for invasive procedure .Relationship Management Lead recommended conservative management. Patient was on aspirin, beta milka and statin. Echocardiogram revealed preserved ejection fraction of 60-65%, no evidence of left ventricular hypertrophy, no evidence of pericardial effusion. Right ventricular systolic pressure of 19. Blood pressure was managed with calcium channel milka and beta milka, and remained stable. Psychiatrist evaluated patient and diagnosed patient with advanced dementia. Patient was started on Seroquel routine and as needed basis. Aricept and Namenda were continued. Patient mental status at the baseline. Bowel regimen instituted. Supportive care provided. Patient was stable for discharge Family unable to care for patient at home, since patient is wandering and leaving the house at unpredictable times. Police report was filed during this admission since patient was missing from home. Subsequently employment case manager was contacted for placement to the senior care facility. Family agreed with transfer to senior care facility and choice of facility. Patient was stable for discharge. FINAL DIAGNOSES: Dizziness of unknown cause Abnormal cardiac enzymes Alzheimer dementia, advanced Hypertension DISCHARGE MEDICATIONS: See Medication Reconciliation list. DISCHARGE INSTRUCTIONS: Patient was discharged to senior care facility.. Follow-up with medical doctor at the facility. A primary care provider. I have been assigned to dictate discharge summary for this account. I was not involved in the patient's management. Matt (Rileygabi),Radha BAUTISTA March 31, 2018 10:54
== END 2018-03-28 13:52 | DRG 56 ==
LOC: EDBD 21:43 → EMR 22:00 → EDBEDREQSVC 03-23 00:33 → EDBEDREQ 03-23 00:35 → 2E 03-23 00:41 → EDBEDREQ 03-23 00:53 → 4W 03-25 15:00
DX: G30.9 Alzheimer's disease, unspecified (principal); G93.40 Encephalopathy, unspecified; F02.81 Dementia in other diseases classified elsewhere, unspecified severity, with behavioral disturbance; R42 Dizziness and giddiness; R74.8 Abnormal levels of other serum enzymes; Z91.83 Wandering in diseases classified elsewhere; I10 Essential (primary) hypertension; R06.02 Shortness of breath
CPT/HCPCS: 36415; 70450; 71045; 80048; 80053; 80061; 81003; 82550; 82553; 83036; 84132; 84443; 84484; 85007; 85025; 93005; 93306; 99285